=== PATIENT | male | born 1955 | race Asian ===

== ENCOUNTER 2019-02-18 10:59 | Emergency (ER) | payer OTHER ==
[~2019-02-18] VITALS: Ht 167.6 cm; Wt 73.0 kg
[2019-02-18 11:04] VITALS: Ht 167.6 cm; Wt 73.0 kg
[2019-02-18 11:54] LABS: BASOPHIL % 0.3 % (0-2); PLATELET COUNT 205 x10^3mcL (130-400); RED CELL DISTRIBUTION WIDTH 13.1 % (11.5-14.5)
[2019-02-18 12:15] LABS: CALCIUM 9.1 mg/dL (8.5-10.1); CARBON DIOXIDE 26.2 mmol/L (21-32); CHLORIDE SERUM 106 mmol/L (98-107); CREATININE SERUM 0.7 mg/dL (0.7-1.3); GFR1 > 60 mL/min; GLUCOSE SERUM 108 mg/dL (74-106); POTASSIUM SERUM 3.9 mmol/L (3.5-5.1); SODIUM SERUM 142 mmol/L (136-145)
[2019-02-18 12:20] LABS: ALKALINE PHOSPHATASE 65 U/L (46-116); ALT/SGPT 36 U/L (16-63); AST/SGOT 18 U/L (15-37); BILIRUBIN TOTAL 0.45 mg/dL (0.20-1.00); CHOLESTEROL 151 mg/dL (<200); HDL CHOLESTEROL 47 mg/dL (40-60); TOTAL PROTEIN, SERUM 7.1 g/dL (6.4-8.2)
[2019-02-18 12:22] LABS: ALBUMIN 3.3 g/dL (3.4-5.0)
[2019-02-18 14:23] VITALS: BP 120/62
== END 2019-02-18 14:23 | disposition home or self-care (01) ==
LOC: ED → EDBD 10:59 → ED 14:23
PROVIDERS: Emergency Medicine
DX: R42 Dizziness and giddiness (principal); Z98.890 Other specified postprocedural states
CPT/HCPCS: J2405; J7030; J8597